=== PATIENT | male | born 1950 | race Caucasian/White ===

== ENCOUNTER 2018-10-29 14:00 | Emergency (ER) | payer MEDICARE ==
[~2018-10-29] VITALS: Ht 167.6 cm; Wt 81.2 kg
[2018-10-29] MEDS ORDERED: SYNTHROID137 MC1 PO (14:24)
[2018-10-29] MEDS ORDERED: SIMVASTATIN40 MG PO (14:25)
[2018-10-29] MEDS ORDERED: OMEPRAZOLE40 MG PO (14:25)
[2018-10-29] MEDS ORDERED: COZAAR 25 MG TA25 M1 (14:25)
[2018-10-29] MEDS ORDERED: VITAMIN D1000 UNI1 PO (14:26)
[2018-10-29] MEDS ORDERED: LUMIGAN2.5 M1 OP (14:26)
[2018-10-29] MEDS ORDERED: LAMISIL AT 1% C12 G1 TP (14:26)
[2018-10-29] MEDS ORDERED: ROBAXIN 750 MG750 M1 PO (15:33)
[2018-10-29] MEDS ORDERED: HYDROCODONE-AP1 EAC6 PO (15:33)
[2018-10-29 15:45] VITALS: BP 136/68
== END 2018-10-29 15:45 | disposition home or self-care (01) ==
LOC: M.ERS 14:00
DX: S00.81XA Abrasion of other part of head, initial encounter (principal); S80.811A Abrasion, right lower leg, initial encounter; E03.9 Hypothyroidism, unspecified; Z85.46 Personal history of malignant neoplasm of prostate; I12.9 Hypertensive chronic kidney disease with stage 1 through stage 4 chronic kidney disease, or unspecified chronic kidney disease; N18.3 Chronic kidney disease, stage 3 (moderate); Z88.0 Allergy status to penicillin; Z88.5 Allergy status to narcotic agent; Z88.6 Allergy status to analgesic agent; W00.0XXA Fall on same level due to ice and snow, initial encounter; Y93.89 Activity, other specified; Y92.89 Other specified places as the place of occurrence of the external cause; Y99.8 Other external cause status

== ENCOUNTER → 2018-11-18 | Outpatient (CLI) | payer MEDICARE ==
[~2018-11-18] MED LIST: COZAAR 25 MG TA25 M1; HYDROCODONE-AP1 EAC6 PO; LAMISIL AT 1% C12 G1 TP; LUMIGAN2.5 M1 OP; OMEPRAZOLE40 MG PO; ROBAXIN 750 MG750 M1 PO; SIMVASTATIN40 MG PO; SYNTHROID137 MC1 PO; VITAMIN D1000 UNI1 PO
== END ==
LOC: M.ULTRA 12:46
DX: I82.412 Acute embolism and thrombosis of left femoral vein (principal); I82.432 Acute embolism and thrombosis of left popliteal vein

== ENCOUNTER → 2020-11-15 | Outpatient (CLI) | payer MEDICARE ==
--- NOTE | 2020-11-17 20:14 | CON ---
[address] [address] CONSULTATION Name: ANNIKA DUQUE Room: [facility] [place]#: [id number] Admission: 11/15/20 Attend Phys: Declan Cobb MD Discharge: Date of : 46 Report #: [id number] THIS REPORT FOR: cc: Black Salgado Vincent R. DO ~ Keleti, Daniel MD DATE OF CONSULTATION: 11/15/2020 Cc:Dr. Black Osborn RADIATION ONCOLOGY CONSULT NOTE REFERRING PHYSICIANS: Include Dr. Black Salgado and Dr. Osborn. PRIMARY SITE AND HISTOPATHOLOGY: The patient has a recurrent prostate cancer as evidenced by a rising PSA. HISTORY OF PRESENT ILLNESS: The patient is a 70-year-old man who was originally diagnosed with prostate cancer and underwent a robotic prostatectomy on 04/02/2015. Preoperatively, his PSA was 5.6 and his stage was T2 N0 M0. The pathology revealed an adenocarcinoma of the prostate with a [place] score of 4+4 equals 8, which involved the left posterior base and he also had a [place] score of 3+4 equals 7 involving the right posterior mid gland and there was perineural invasion. The seminal vesicles were not involved by cancer and the surgical margin was cleared by about 1 mm. He started having a rising PSA. The patient indicated that his PSA was undetectable after the operation; it was 0.1 on 05/25/2019, it was 0.2 on 05/27/2020, it was 0.2 on 07/05/2020 and it was 0.2 on 10/23/2020. The patient indicated that he had seen the radiation oncologist, Dr. Rowe, and he offered him radiation therapy. The patient denied having any stress incontinence. He has nocturia about 2 times a night. PAST MEDICAL HISTORY AND PAST SURGICAL HISTORY: He uses eyedrops for glaucoma, he had bilateral cataract repair. He has hearing loss. He also has chronic renal insufficiency. He has hypertension and he is hypothyroid. MEDICATIONS: Include 137 mcg of Synthroid per day, 40 mg of omeprazole per day, 100 mg of losartan per day, vitamin D every other day, Lumigan 0.01% eyedrops at night, atorvastatin 40 mg per day and amlodipine 2.5 mg per day. ALLERGIES: INCLUDE CODEINE AND TRAMADOL. FAMILY HISTORY: Mother had cancer of the liver. [place] [address] CONSULTATION Name: ANNIKA DUQUE Room: [facility]#: [id number] Admission: 11/15/20 Attend Phys: Declan Cobb MD Discharge: Date of : 46 Report #: [id number] the lung. Brother had prostate cancer. SOCIAL HISTORY: He is retired and he is . He has 2 daughters. Ethanol: he rarely drinks alcohol. REVIEW OF SYSTEMS: GENERAL: He denied having any fevers. SKIN: He denied having color changes. LYMPH NODES: He denied having enlarged or painful glands. ENDOCRINE: He denied having hot or cold intolerance. HEMATOLOGY AND IMMUNOLOGY: He denied having any anemia. MUSCULOSKELETAL: He denied having any arthritis or painful swollen joints. HEAD AND NECK: He has chronic tinnitus. RESPIRATORY: He denied having shortness of breath or cough. CARDIOVASCULAR: He denied having palpitations. GASTROINTESTINAL: The patient denied having nausea or vomiting. NEUROLOGIC: He denied having any focal weakness. PHYSICAL EXAMINATION: VITAL SIGNS: Height 5 feet 8 inches, weight 191.4 pounds, blood pressure 155/84, pulse 82, oxygen saturation 98%, temperature 98.1 degrees Fahrenheit and respirations 16. GENERAL: The patient was alert and oriented. LYMPH NOES: He had no cervical or supraclavicular lymphadenopathy. HEART: Had a regular rate and rhythm without murmur. LUNGS: were clear to auscultation. ABDOMEN: Not tender. Spleen was not palpable. Liver was at the costal margin. NEUROLOGIC: Cranial nerves 2-12 were intact. Sensation was intact. He had 5/5 strength in his extremities. EXTREMITIES: No clubbing, cyanosis, or edema. ASSESSMENT AND PLAN: The patient has findings consistent with a recurrent prostate cancer as evidenced by a rising PSA. He was offered radiation therapy, as salvage therapy for his rising PSA. He was told his other options include androgen suppression alone or observation. One of the series that looked at salvage radiation therapy was the GETUG study, which had 743 men with rising PSAs between 0.2 to less than 2 and they were randomized to radiation therapy alone versus radiation therapy and androgen suppression and the 5-year biochemical-free survival was 80% with androgen suppression/radiation therapy versus 62% with radiation therapy alone. In terms of elective pelvic radiation, there was a study from [facility] that was entitled "elective pelvic irradiation in prostate cancer patients with biochemical failure following radical prostatectomy, a propensity scoring matching analysis" and they found that the 5-year biochemical relapse free survival [place] [address] CONSULTATION Name: ANNIKA DUQUE Room: [facility]#: [id number] Admission: 11/15/20 Attend Phys: Declan Cobb MD Discharge: Date of : 46 Report #: [id number] had whole pelvic radiation was 65.9% versus 42.2% in those who had just prostate bed radiation therapy alone. So the risks, benefits, logistics of radiation therapy were explained to the patient in detail and the patient gave his witnessed, informed consent to proceed with radiation therapy. Orders will be written to schedule the patient for simulation. Thank you very much for this consult. <ELECTRONICALLY SIGNED> By: Declan Cobb MD 11/17/202013 [id number] Cobb MD /nt
== END ==
LOC: M.RTH 09:30
PROVIDERS: ATTEND Radiology Radiation Oncology
DX: C61 Malignant neoplasm of prostate (principal)

== ENCOUNTER → 2020-11-28 | Outpatient (CLI) | payer MEDICARE | LOC: M.NUC 11-21 11:15 | PROVIDERS: ATTEND Radiology Radiation Oncology | DX: C61 Malignant neoplasm of prostate (principal) ==